=== PATIENT | male | born 1940 | race Hispanic/Latino ===

== ENCOUNTER 2020-06-06 03:33 | Emergency (ER) | payer OTHER ==
--- NOTE | 2020-06-06 03:52 | Emergency Department Report ---
ED Altered Mental Status HPI - General Chief Complaint: Altered Mental Status Stated Complaint: AMS PUI?: No Time Seen by Provider: 06/06/20 03:45 Source: patient, EMS Mode of arrival: Stretcher Limitations: No Limitations - History of Present Illness Initial Comments: Patient is a 79-year-old male who presents emergency room for altered mental status. Patient was found wandering around [place] police station and was sent here for evaluation. Patient brought in by EMS. Report received from EMS. Patient has a history of Parkinson's and dementia. Patient's baseline is unknown. At this time the patient is alert and oriented x2. Patient is answering most questions appropriately. Patient is disoriented to date. Patient states that he was wandering outside because people were chasing him he was trying to get away. Patient denies recent travel. Patient denies recent international travel. Patient denies exposure to the novel coronavirus. Patient denies sick contacts. Patient denies fever and chills. Patient denies cough. Patient denies diarrhea. Patient denies coming in contact with anybody with symptoms of the novel coronavirus. MD Complaint: altered mental status -: Sudden Consistency of Symptoms: constant Associated Symptoms: denies other symptoms - Related Data Home Medications Medication Instructions Recorded Confirmed Last Taken Aspirin 325 mg PO QDAY 04/24/14 04/24/14 04/23/14 09:00 Oxycodone HCl [OxyCODONE] 10 mg PO Q4-6H PRN 04/24/14 04/24/14 04/23/14 20:00 Pantoprazole [Protonix TAB] 40 mg PO QDAY 04/24/14 04/24/14 04/23/14 09:00 Simvastatin 20 mg PO QDAY 04/24/14 04/24/14 04/23/14 20:00 lisinopriL [Zestril TAB] 20 mg PO QDAY 04/24/14 04/24/14 04/23/14 20:00 Allergies Allergy/AdvReac Type Severity Reaction Status Date / Time meperidine HCl [From Demerol] AdvReac HALLUCINATI Verified 04/24/14 07:29 ONS tramadol AdvReac HALLUCINATI Verified 04/24/14 07:29 ONS ED Review of Systems ROS: Stated complaint: AMS Other details as noted in HPI Comment: All other systems reviewed and negative ED Past Medical Hx - Past Medical History Previous Medical History?: Yes Hx Hypertension: Yes Hx Heart 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 CAD - Surgical History Past Surgical History?: Yes Hx Coronary Stent: Yes - Family History Family history: no significant - Social History Smoking Status: Never Smoker Substance Use Type: None - Medications Home Medications: Home Medications Medication Instructions Recorded Confirmed Last Taken Type Aspirin 325 mg PO QDAY 04/24/14 04/24/14 04/23/14 09:00 History Oxycodone HCl [OxyCODONE] 10 mg PO Q4-6H PRN 04/24/14 04/24/14 04/23/14 20:00 History Pantoprazole [Protonix TAB] 40 mg PO QDAY 04/24/14 04/24/14 04/23/14 09:00 History Simvastatin 20 mg PO QDAY 04/24/14 04/24/14 04/23/14 20:00 History lisinopriL [Zestril TAB] 20 mg PO QDAY 04/24/14 04/24/14 04/23/14 20:00 History ED Physical Exam - General Limitations: Altered Mental Status General appearance: alert, in no apparent distress - Head Head exam: Present: atraumatic, normocephalic - Eye Eye exam: Present: normal appearance - ENT ENT exam: Present: mucous membranes moist - Neck Neck exam: Present: normal inspection - Respiratory Respiratory exam: Present: normal lung sounds bilaterally. Absent: respiratory distress - Cardiovascular Cardiovascular Exam: Present: regular rate, normal rhythm. Absent: systolic murmur, diastolic murmur, rubs, gallop - GI/Abdominal GI/Abdominal exam: Present: soft, normal bowel sounds - Rectal Rectal exam: Present: deferred - Extremities Exam Extremities exam: Present: normal inspection - Back Exam Back exam: Present: normal inspection - Neurological Exam Neurological exam: Present: alert, altered, CN II-XII intact - Psychiatric Psychiatric exam: Present: normal affect, normal mood - Skin Skin exam: Present: warm, dry, intact, normal color. Absent: rash - Assessment Assessment Interval: Baseline - Level of Consciousness 1a. Level of Consciousness: alert/keenly responsive - LOC Questions 1b. LOC Questions: answers both correctly - LOC Command 1c. LOC Commands: performs tasks correctly - Best Gaze 2. Best Gaze: normal - Visual 3. Visual: no visual loss - Facial Palsy 4. Facial Palsy: normal symmetrical movement - Motor Arm 5a. Motor Arm Left: no drift 5b. Motor Arm Right: no drift - Motor Leg 6a. Motor Leg Left: no drift 6b. Motor Leg Right: no drift - Limb Ataxia 7. Limb Ataxia: absent - Sensory 8. Sensory: normal - Best Language 9. Best Language: no aphasia - Dysarthria 10. Dysarthria: normal - Extinction and Inattention 11. Extinction/Inattention: no abnormality - Scoring Total Score: 0 Stroke Severity: No Stroke Symptoms ED Course Vital Signs 06/06/20 06/06/20 06/06/20 03:47 04:00 04:16 Pulse Rate 78 89 76 Respiratory 19 12 22 Rate Blood Pressure 146/72 146/75 O2 Sat by Pulse Oximetry 06/06/20 04:27 Pulse Rate Respiratory Rate Blood Pressure O2 Sat by Pulse 96 Oximetry - Reevaluation(s) Reevaluation #1: I discussed all results with patient. I discussed plan of care with patient. Patient agrees with plan of care and transfer. 06/06/20 05:55 - Consultations Consultation #1: I discussed case with [facility] physician, Dr. Alcantara. Dr. Alcantara states they will accept the patient he will get the patient transferred to a [facility] facility. 06/06/20 05:29 Patient accepted to [facility] [place] by Dr. Smith. Patient will be transported via EMS. Patient is stable for transfer. 06/06/20 05:55 - Lab Data Result diagrams: 06/06/20 04:00 06/06/20 04:00 Lab Results 06/06/20 06/06/20 06/06/20 Range/Units 04:00 04:00 04:00 WBC 4.8 (4.5-11.0) K/mm3 RBC 3.80 (3.65-5.03) M/mm3 Hgb 12.4 (11.8-15.2) gm/dl Hct 35.4 L (35.5-45.6) % MCV 93 (84-94) fl MCH 33 H (28-32) pg MCHC 35 H (32-34) % RDW 13.7 (13.2-15.2) % Plt Count 157 (140-440) K/mm3 Lymph % (Auto) 9.5 L (13.4-35.0) % [place] % (Auto) 8.9 H (0.0-7.3) % Eos % (Auto) 0.5 (0.0-4.3) % Baso % (Auto) 0.4 (0.0-1.8) % Lymph # (Auto) 0.5 L (1.2-5.4) K/mm3 [place] # (Auto) 0.4 (0.0-0.8) K/mm3 Eos # (Auto) 0.0 (0.0-0.4) K/mm3 Baso # (Auto) 0.0 (0.0-0.1) K/mm3 Seg Neutrophils % 80.7 H (40.0-70.0) % Seg Neutrophils # 3.9 (1.8-7.7) K/mm3 Sodium 141 (137-145) mmol/L Potassium 4.5 (3.6-5.0) mmol/L Chloride 103.2 (98-107) mmol/L Carbon Dioxide 28 (22-30) mmol/L Anion Gap 14 mmol/L BUN 23 H (9-20) mg/dL Creatinine 1.0 (0.8-1.3) mg/dL Estimated GFR > 60 ml/min BUN/Creatinine Ratio 23 % Glucose 103 H (75-100) mg/dL Lactic Acid 2.90 H* (0.7-2.0) mmol/L Calcium 9.3 (8.4-10.2) mg/dL Total Bilirubin 0.40 (0.1-1.2) mg/dL AST 15 (5-40) units/L ALT < 5 L (7-56) units/L Alkaline Phosphatase 92 (35-129) units/L Total Creatine Kinase 162 (55-170) units/L Total Protein 6.8 (6.3-8.2) g/dL Albumin 4.0 (3.9-5) g/dL Albumin/Globulin Ratio 1.4 % Salicylates (2.8-20.0) mg/dL Acetaminophen (10.0-30.0) ug/mL Plasma/Serum Alcohol (0-0.07) % 06/06/20 06/06/20 06/06/20 Range/Units 04:00 04:00 04:00 WBC (4.5-11.0) K/mm3 RBC (3.65-5.03) M/mm3 Hgb (11.8-15.2) gm/dl Hct (35.5-45.6) % MCV (84-94) fl MCH (28-32) pg MCHC (32-34) % RDW (13.2-15.2) % Plt Count (140-440) K/mm3 Lymph % (Auto) (13.4-35.0) % [place] % (Auto) (0.0-7.3) % Eos % (Auto) (0.0-4.3) % Baso % (Auto) (0.0-1.8) % Lymph # (Auto) (1.2-5.4) K/mm3 [place] # (Auto) (0.0-0.8) K/mm3 Eos # (Auto) (0.0-0.4) K/mm3 Baso # (Auto) (0.0-0.1) K/mm3 Seg Neutrophils % (40.0-70.0) % Seg Neutrophils # (1.8-7.7) K/mm3 Sodium (137-145) mmol/L Potassium (3.6-5.0) mmol/L Chloride (98-107) mmol/L Carbon Dioxide (22-30) mmol/L Anion Gap mmol/L BUN (9-20) mg/dL Creatinine (0.8-1.3) mg/dL Estimated GFR ml/min BUN/Creatinine Ratio % Glucose (75-100) mg/dL Lactic Acid (0.7-2.0) mmol/L Calcium (8.4-10.2) mg/dL Total Bilirubin (0.1-1.2) mg/dL AST (5-40) units/L ALT (7-56) units/L Alkaline Phosphatase (35-129) units/L Total Creatine Kinase (55-170) units/L Total Protein (6.3-8.2) g/dL Albumin (3.9-5) g/dL Albumin/Globulin Ratio % Salicylates < 0.3 L (2.8-20.0) mg/dL Acetaminophen 5.0 L (10.0-30.0) ug/mL Plasma/Serum Alcohol < 0.01 (0-0.07) % 04/17/21 Range/Units 05:07 WBC (4.5-11.0) K/mm3 RBC (3.65-5.03) M/mm3 Hgb (11.8-15.2) gm/dl Hct (35.5-45.6) % MCV (84-94) fl MCH (28-32) pg MCHC (32-34) % RDW (13.2-15.2) % Plt Count (140-440) K/mm3 Lymph % (Auto) (13.4-35.0) % [place] % (Auto) (0.0-7.3) % Eos % (Auto) (0.0-4.3) % Baso % (Auto) (0.0-1.8) % Lymph # (Auto) (1.2-5.4) K/mm3 [place] # (Auto) (0.0-0.8) K/mm3 Eos # (Auto) (0.0-0.4) K/mm3 Baso # (Auto) (0.0-0.1) K/mm3 Seg Neutrophils % (40.0-70.0) % Seg Neutrophils # (1.8-7.7) K/mm3 Sodium (137-145) mmol/L Potassium (3.6-5.0) mmol/L Chloride (98-107) mmol/L Carbon Dioxide (22-30) mmol/L Anion Gap mmol/L BUN (9-20) mg/dL Creatinine (0.8-1.3) mg/dL Estimated GFR ml/min BUN/Creatinine Ratio % Glucose (75-100) mg/dL Lactic Acid 1.20 (0.7-2.0) mmol/L Calcium (8.4-10.2) mg/dL Total Bilirubin (0.1-1.2) mg/dL AST (5-40) units/L ALT (7-56) units/L Alkaline Phosphatase (35-129) units/L Total Creatine Kinase (55-170) units/L Total Protein (6.3-8.2) g/dL Albumin (3.9-5) g/dL Albumin/Globulin Ratio % Salicylates (2.8-20.0) mg/dL Acetaminophen (10.0-30.0) ug/mL Plasma/Serum Alcohol (0-0.07) % - Radiology Data Radiology results: report reviewed CT head without contrast HISTORY: Altered Mental Status. TECHNIQUE: Axial imaging performed from the skull apex through the skull base without the use of contrast. All CT scans at this location are performed using CT dose reduction for ALARA by means of automated exposure control. COMPARISON: None FINDINGS: Parenchyma: No acute intracranial hemorrhage or parenchymal abnormality. Ventricles: There is mild diffuse brain atrophy with commensurate ventricular enlargement which is likely age appropriate. Soft tissues: Soft tissues including the orbits appear normal. Bones: No acute osseous abnormality. Sinuses: Sinuses and mastoid air cells are clear. IMPRESSION: No acute abnormality. - Medical Decision Making Patient is a 79-year-old male presents emergency room for altered mental status and fever. Patient was found wandering around [place] police station. When I EMS brought him to the hospital for evaluation. Patient has a history of Parkinson's dementia. Patient is confused and is unknown what the patient's ba seline mentation is. Patient had labs done which were consistent with dehydration. Patient's BUN is elevated. Patient given IV fluids in the ER. I discussed the case with the patient's private insurance and the [facility] physician recommended transfer. Consultation establish transfer and the patient has been accepted to the [facility] facility. Critical care time documented due to the multiple reassessments, prolonged time at the bedside, interpretation of diagnostics and labs and discussion with the receiving hospital and the patient's private insurance, [facility].. - Differential Diagnosis Dehydration, UTI, electrolyte imbalance, altered mental status, confusion Critical Care Time: Yes Critical care time in (mins) excluding proc time.: 35 Critical care attestation.: If time is entered above; I have spent that time in minutes in the direct care of this critically ill patient, excluding procedure time. Critical Care Time: 35 minutes ED Disposition Clinical Impression: Dehydration, Confusion Altered mental status Qualifiers: Altered mental status type: unspecified Qualified Code(s): R41.82 - Altered mental status, unspecified Disposition: DC/TX-70 ANOTHER TYPE HLTHCARE Is pt being admited?: No Does the pt Need Aspirin: No Condition: Critical Referrals: PRIMARY CARE, [Primary Care Provider] - 3-5 Days Time of Disposition: 05:45
[2020-06-06 04:32] LABS: Basophils % (Auto) 0.4 % (0.0-1.8); Eosinophils % (Auto) 0.5 % (0.0-4.3); Hematocrit 35.4 % (35.5-45.6); Hemoglobin 12.4 gm/dl (11.8-15.2); Lymphocytes # (Auto) 0.5 K/mm3 (1.2-5.4); Lymphocytes % (Auto) 9.5 % (13.4-35.0); Mean Corpuscular HGB Conc 35 % (32-34); Mean Corpuscular Volume 93 fl (84-94); Monocytes # (Auto) 0.4 K/mm3 (0.0-0.8); Monocytes % (Auto) 8.9 % (0.0-7.3); Platelet Count 157 K/mm3 (140-440); Red Cell Distribution Width 13.7 % (13.2-15.2)
[2020-06-06 04:52] LABS: BUN/Creatinine Ratio 23; Blood Urea Nitrogen 23 mg/dL (9-20); Calcium 9.3 mg/dL (8.4-10.2); Hemolysis Index 6
[2020-06-06 05:02] LABS: Alanine Aminotransferase < 5 units/L (7-56)
--- NOTE | 2020-06-06 05:02 | Cat Scan Report ---
CT head without contrast HISTORY: Altered Mental Status. TECHNIQUE: Axial imaging performed from the skull apex through the skull base without the use of con trast. All CT scans at this location are performed using CT dose reduction for ALARA by means of aut omated exposure control. COMPARISON: None FINDINGS: Parenchyma: No acute intracranial hemorrhage or parenchymal abnormality. Ventricles: There is mild diffuse brain atrophy with commensurate ventricular enlargement which is l ikely age appropriate. Soft tissues: Soft tissues including the orbits appear normal. Bones: No acute osseous abnormality. Sinuses: Sinuses and mastoid air cells are clear. IMPRESSION: No acute abnormality. Signer Name: Zane Salvador MD Signed: 06/06/2020 4:57 AM Workstation Name: [id number]
[2020-06-06] MEDS ORDERED: SODIUM CHLORIDE 0.9% 1000 ML 1,000 ML IV ONE (05:25)
[2020-06-06 09:50] VITALS: BP 180/87
== END 2020-06-06 09:00 | disposition other institution (70) ==
LOC: ED 03:33
DX: E86.0 Dehydration (principal); R41.0 Disorientation, unspecified; I10 Essential (primary) hypertension; I25.2 Old myocardial infarction; F03.90 Unspecified dementia, unspecified severity, without behavioral disturbance, psychotic disturbance, mood disturbance, and anxiety; I25.10 Atherosclerotic heart disease of native coronary artery without angina pectoris; Z79.899 Other long term (current) drug therapy; Z88.8 Allergy status to other drugs, medicaments and biological substances; Z98.890 Other specified postprocedural states
CPT/HCPCS: 36415; 70450; 80053; 82140; 82550; 85025; 96360; 99285; J7030; 80320; G0480